=== PATIENT | female | born 1955 | race African-American/Black ===

== ENCOUNTER 2016-09-30 06:44 | Emergency (ER) | payer MEDICAID, OTHER ==
[~2016-09-30] VITALS: Ht 162.6 cm; Wt 92.5 kg
[~2016-09-30 06:44] MED LIST: PERCOCET 5-3251 EACH ORAL; ZOFRAN4 MG/5 ML ORAL
[2016-09-30] MEDS ORDERED: NKM (06:58)
[2016-09-30 07:01] VITALS: BP 135/76
[2016-09-30] MEDS ORDERED: Ipratropium 0.02% Inh Soln 2.5ml UD HHN ONE (07:15)
[2016-09-30] MEDS ORDERED: Albuterol ud Inhalation HHN ONE (07:15)
[2016-09-30 08:34] VITALS: BP 161/90
[2016-09-30] MEDS ORDERED: LEVAQUIN500 MG ORAL (08:59)
[2016-09-30] MEDS ORDERED: ROBITUSSIN COU118 M4 PO (08:59)
[2016-09-30 09:23] VITALS: BP 129/86
[2016-09-30 09:26] VITALS: BP 129/86
--- NOTE | 2016-09-30 09:44 | Emergency Room Report ---
History of Present Illness General Chief Complaint: Dyspnea/Respdistress Source: Patient Present Illness HPI Patient presents with complaints of cough and congestion over the past 2 days She has had increased nasal congestion as well Denies any headache or visual changes Denies any neck pain or photophobia She feels weak Cough is somewhat nonproductive Patient had reported tightness in the upper chest area This is essentially related to her cough and upper respiratory complaints Denies any actual chest pain Denies any rash patient did have a low-grade fever at home and had taken Tylenol Denies any recent travel Allergies: Coded Allergies: ASPIRIN (Unverified Allergy, Unknown, 09/30/16) CODEINE (Unverified Allergy, Unknown, 09/30/16) IBUPROFEN (Unverified Allergy, Unknown, 09/30/16) TETRACYCLINES (Unverified Allergy, Unknown, 09/30/16) Patient History Past Medical History: see triage record Pertinent Family History: none Last Menstrual Period: n/a Reviewed Nursing Documentation: PMH: Agreed, PSxH: Agreed Nursing Documentation-PMH Past Medical History: No Stated History Review of Systems All Other Systems: negative except mentioned in HPI Physical Exam Vital Signs Date Time Temp Pulse Resp B/P Pulse Ox O2 Delivery O2 Flow Rate FiO2 09/30/16 06:52 100.8 98 16 113/73 97 Room Air 09/30/16 07:23 21 Sp02 EP Interpretation: reviewed, normal General Appearance: well appearing, no apparent distress Head: normocephalic, atraumatic Eyes: bilateral eye EOMI, bilateral eye PERRL ENT: hearing grossly normal, TMs + canals normal, uvula midline, pharyngeal erythema, other - Clear bilateral rhinorrhea, some mild increased pressure on the maxillary sinuses on palpation Neck: full range of motion, supple, no meningismus, no bony tend Respiratory: lungs clear, normal breath sounds, no rhonchi, no respiratory distress, no retraction, no accessory muscle use Cardiovascular #1: normal peripheral pulses, regular rate, rhythm, no edema, no gallop, no JVD, no murmur Gastrointestinal: normal bowel sounds, non tender, soft, no mass, no organomegaly, non-distended, no guarding, no hernia, no pulsatile mass, no rebound Musculoskeletal: normal inspection Neurologic: oriented x3, responsive, chipper feeder III-XII nml as tested, motor strength/ tone normal, sensory intact Psychiatric: mood/affect normal Skin: normal color, no rash, warm/dry, palpation normal Lymphatic: normal inspection, no adenopathy Medical Decision Making Diagnostic Impression: Primary Impression: flu like symptoms Additional Impression: sinusitis ER Course Given the patient's presentation she was provided with a breathing treatment Patient x-ray was negative Complains did not sound to be cardiac in nature patient has clear signs of upper respiratory pathology Patient's heart rate had mildly increased up to 100 This was after albuterol treatment Patient otherwise continues to do well I do not suspect any sepsis or toxic finding And the patient otherwise stable for conservative initial outpatient trial Rhythm Strip Diag. Results EP Interpretation: yes Rate: 77 Rhythm: NSR, no PVC's, no ectopy Chest X-Ray Diagnostic Results EP Interpretation: Yes Findings: no consolidation, no effusion, no pneumothorax Number of Views: 1 Last Vital Signs Date Time Temp Pulse Resp B/P Pulse Ox O2 Delivery O2 Flow Rate FiO2 09/30/16 09:26 99.4 91 21 129/86 100 Room Air 21 Status: improved Disposition: HOME, SELF-CARE Condition: Improved Scripts Guaifenesin/Dextromethorphan (Robitussin Cough-Chest Dm Liq) 118 Ml Liquid 5 ML PO BID for 7 Days, ML Prov: DENNIS JONES D.O. 09/30/16 Levofloxacin* (LEVAQUIN*) 500 Mg Tablet 500 MG ORAL DAILY for 10 Days, TAB Prov: DENNIS JONES D.O. 09/30/16 Referrals: JAC BAEZA,REFERRING (PCP) Patient Instructions: Sinusitis, Adult, Viral Respiratory Infection Additional Instructions: Patient is provided with the discharge instructions notified to follow up with primary doctor in the next 2-3 days otherwise return to the er with any worsening symptoms. DENINS JONES D.O. Sep 30, 2016 09:44
--- NOTE | 2016-10-02 08:29 | Diagnostic Imaging Report ---
Indication: Shortness of breath Technique: Single portable AP view of the chest. Findings: Comparison: None. The bones and extra pulmonary soft tissues, cardiomediastinal silhouette, pulmonary vasculature and parenchyma, and pleural surfaces are unremarkable. IMPRESSION: Negative portable AP chest.
== END 2016-09-30 09:26 | disposition home or self-care (01) ==
LOC: EMR 07:21
DX: J11.1 Influenza due to unidentified influenza virus with other respiratory manifestations (principal); J32.0 Chronic maxillary sinusitis; Z88.6 Allergy status to analgesic agent; Z88.1 Allergy status to other antibiotic agents
CPT/HCPCS: 71010; 94640; 94664; 99283